=== PATIENT | female | born 1995 | race Caucasian/White ===

== ENCOUNTER 2019-07-30 10:20 | Inpatient (IN) | payer OTHER ==
[~2019-07-30] VITALS: Ht 147.3 cm; Wt 45.4 kg
[2019-07-30 10:49] VITALS: BP 127/83
[2019-07-30 12:17] LABS: BASOPHILS % (AUTO) 0.7 % (0.0-2.0); EOSINOPHILS % (AUTO) 1.3 % (1.0-6.0); HEMATOCRIT 40.2 % (36-46); HEMOGLOBIN 13.4 g/dL (12.0-16.0); LYMPHOCYTES # (AUTO) 1.3 K/uL (1.0-4.8); LYMPHOCYTES % (AUTO) 15.2 % (22.0-44.0); MEAN CORPUSCULAR HEMOGLOBIN 28.5 pg (26.0-34.0); MEAN CORPUSCULAR HGB CONC 33.3 G/dL (31.0-37.0); MEAN CORPUSCULAR VOLUME 86 fL (80-100); MONOCYTES # (AUTO) 0.5 K/uL (0.1-1.0); MONOCYTES % (AUTO) 5.8 % (2.0-9.0); NEUTROPHILS # (AUTO) 6.6 K/uL (1.8-7.7); PLATELET COUNT (AUTO)-OB 120 K/uL (150-450); RED BLOOD CELL COUNT(AUTO) 4.68 MIL/uL (4.00-5.20); RED CELL DISTRIBUTION WIDTH 14.8 % (11.5-14.5)
[2019-07-30] MEDS ORDERED: RINGERS SOLUTION,LACTATED 1,000 ML IV ONE (12:21)
[2019-07-30] MEDS ORDERED: OXYTOCIN 30 UNITS/LACT RINGERS 500 ML IV ONE (12:23)
[2019-07-30] MEDS ORDERED: RINGERS SOLUTION,LACTATED 1,000 ML IV PRN (12:23)
[2019-07-30] MEDS ORDERED: METOCLOPRAMIDE HCL 5 MG/ML 2 ML VIAL IVP PRN (12:30)
[2019-07-30] MEDS ORDERED: LIDOCAINE/PF 1% 30 ML VIAL INJ PRN (12:30)
[2019-07-30] MEDS ORDERED: MISOPROSTOL 25 MCG TABLET PO ONE (12:30)
[2019-07-30] MEDS ORDERED: METHYLERGONOVINE MALEATE 0.2 MG/ML VIAL IM PRN (12:30)
[2019-07-30] MEDS ORDERED: CITRIC ACID/SODIUM CITRATE 30 ML SOLUTION UDCUP PO PRN (12:30)
[2019-07-30 12:52] LABS: AMPHET/METH SCREEN,URINE NEGATIVE (NEGATIVE); BARBITURATE SCREEN, URINE NEGATIVE (NEGATIVE); BENZODIAZEPINES SCREEN,URINE NEGATIVE (NEGATIVE); CANNABINOID SCREEN,URINE NEGATIVE (NEGATIVE); COCAINE SCREEN,URINE NEGATIVE (NEGATIVE); METHADONE SCREEN, URINE NEGATIVE (NEGATIVE); OPIATE SCREEN,URINE NEGATIVE (NEGATIVE)
[2019-07-30 13:05] LABS: PLATELET MORPHOLOGY COMMENT GIANT PLTS PRESENT
[2019-07-30 13:09] LABS: PHENCYCLIDINE SCREEN,URINE NEGATIVE (NEGATIVE)
[2019-07-30] MEDS ORDERED: INFLUENZA VIRUS VACCINE QVS 2019-20 (3YR+)/PF 60 MCG/0.5 ML SYRINGE IM ONE (13:45)
[2019-07-30] MEDS ORDERED: PREN1TAB80 PO (15:13)
[2019-07-30] MEDS: RINGERS SOLUTION,LACTATED 1,000 ML IV SCH ×2 (16:13→21:24)
[2019-07-30] MEDS ORDERED: DINOPROSTONE 10 MG VAGINAL SUPPOSITORY VG ONE (17:45)
[2019-07-30] MEDS: FentaNYL CITRATE-PF 100 MCG/2 ML VIAL IVP PRN ×3 (18:06→21:27)
[2019-07-30] MEDS ORDERED: OXYGEN THERAPY IH SCH (20:00)
[2019-07-31] MEDS: FentaNYL CITRATE-PF 100 MCG/2 ML VIAL IVP PRN ×4 (00:27→07:37)
[2019-07-31] MEDS: RINGERS SOLUTION,LACTATED 1,000 ML IV SCH ×4 (03:30→11:30)
[2019-07-31] MEDS ORDERED: -PHARMACY NOTE- MISC ONE (05:45)
[2019-07-31] MEDS ORDERED: AMPICILLIN SODIUM 2 GM/NS 100 ML IV ONE (08:00)
[2019-07-31] MEDS ORDERED: ROPIVACAINE HCL/PF 0.2% 100 ML ED ONE (10:31)
[2019-07-31] MEDS ORDERED: AMPICILLIN SODIUM 1 GM/NS 50 ML IV SCH (12:00)
[2019-07-31] MEDS ORDERED: OXYTOCIN 30 UNITS/LACT RINGERS 500 ML IV PRN (14:30)
[2019-07-31] MEDS ORDERED: OXYTOCIN 30 UNITS/LACT RINGERS 500 ML IV ONE (18:22)
[2019-07-31] MEDS ORDERED: IBUPROFEN 800 MG TABLET PO PRN (18:30)
[2019-07-31] MEDS ORDERED: OxyCODONE HCL/ACETAMINOPHEN 5-325 MG TABLET PO PRN ×2 (18:30)
[2019-07-31] MEDS ORDERED: GLYCERIN/WITCH HAZEL LEAF 40 PADS JAR TP PRN (18:30)
[2019-07-31] MEDS ORDERED: LANOLIN 7 GM OINTMENT TP PRN (18:30)
[2019-07-31] MEDS ORDERED: MAGNESIUM HYDROXIDE SUSPENSION 30 ML UDCUP PO PRN (18:30)
[2019-07-31] MEDS ORDERED: LIDOCAINE/PF 1% 30 ML VIAL INJ PRN (18:30)
[2019-07-31] MEDS ORDERED: BENZOCAINE 20%/MENTHOL 56 GM SPRAY CANISTER TP PRN (18:30)
[2019-07-31] MEDS ORDERED: MEASLES/MUMPS/RUBELLA VACCINE, LIVE 0.5 ML/VIAL SQ ONE (19:15)
[2019-08-01 07:15] LABS: BASOPHILS % (AUTO) 0.4 % (0.0-2.0); EOSINOPHILS % (AUTO) 0.4 % (1.0-6.0); HEMATOCRIT 32.9 % (36-46); HEMOGLOBIN 11.2 g/dL (12.0-16.0); LYMPHOCYTES # (AUTO) 2.1 K/uL (1.0-4.8); LYMPHOCYTES % (AUTO) 12.8 % (22.0-44.0); MEAN CORPUSCULAR HEMOGLOBIN 29.3 pg (26.0-34.0); MEAN CORPUSCULAR HGB CONC 34.1 G/dL (31.0-37.0); MEAN CORPUSCULAR VOLUME 86 fL (80-100); MONOCYTES # (AUTO) 1.2 K/uL (0.1-1.0); MONOCYTES % (AUTO) 7.5 % (2.0-9.0); NEUTROPHILS % (AUTO) 78.9 % (40.0-70.0); RED BLOOD CELL COUNT(AUTO) 3.82 MIL/uL (4.00-5.20); RED CELL DISTRIBUTION WIDTH 14.8 % (11.5-14.5)
[2019-08-01 07:22] LABS: PLATELET COUNT (AUTO)-OB 95 K/uL (150-450)
[2019-08-02] MEDS ORDERED: IBUP-2071 PO (09:57)
[2019-08-02] MEDS ORDERED: DOCU-275 PO (09:58)
[2019-08-02] MEDS ORDERED: FERR-89 PO (09:59)
== END 2019-08-02 14:20 | disposition home or self-care (01) | DRG 807 ==
LOC: 4S 10:20 → OBSVTOIN 10:20
PROVIDERS: ADMIT Obstetrics & Gynecology; ATTEND Obstetrics & Gynecology
PROC: 3E02340 Introduction of Influenza Vaccine into Muscle, Percutaneous Approach (ICD-10-PCS; 2019-07-30)
PROC: 10D07Z6 Extraction of Products of Conception, Vacuum, Via Natural or Artificial Opening (ICD-10-PCS; principal; 2019-07-31)
PROC: 10907ZC Drainage of Amniotic Fluid, Therapeutic from Products of Conception, Via Natural or Artificial Opening (ICD-10-PCS; 2019-07-31)
PROC: 0HQ9XZZ Repair Perineum Skin, External Approach (ICD-10-PCS; 2019-07-31)
PROC: 3E0R3BZ Introduction of Anesthetic Agent into Spinal Canal, Percutaneous Approach (ICD-10-PCS; 2019-07-31)
PROC: 00HU33Z Insertion of Infusion Device into Spinal Canal, Percutaneous Approach (ICD-10-PCS; 2019-07-31)
DX: O76 Abnormality in fetal heart rate and rhythm complicating labor and delivery (principal); Z37.0 Single live birth; O70.0 First degree perineal laceration during delivery; O69.81X0 Labor and delivery complicated by cord around neck, without compression, not applicable or unspecified; Z3A.39 39 weeks gestation of pregnancy; Z23 Encounter for immunization
CPT/HCPCS: 76805; 86592; 86762; 86850; 86900; 86901; 87081; 87340; 87491; 87591; 90686; 90707; J0290; J2590; J2795; J3010; J7120